=== PATIENT | female | born 1970 | race Caucasian/White ===

== ENCOUNTER → 2018-10-22 | Outpatient (CLI) | payer MEDICARE, MEDICAID ==
[2018-10-22 11:59] LABS: ABSOLUTE BASOPHILS # (AUTO) 0.1 10^3/uL (0.0-0.2); ABSOLUTE EOSINOPHILS # (AUTO) 0.1 10^3/uL (0.0-0.6); ABSOLUTE LYMPHOCYTES (AUTO) 1.7 10^3/uL (0.5-4.7); ABSOLUTE MONOCYTES (AUTO) 0.7 10^3/uL (0.1-1.4); ABSOLUTE NEUT (AUTO) 2.4 10^3/uL (1.7-8.2); BASOPHILS % (AUTO) 1.2 % (0-2); EOSINOPHILS % (AUTO) 2.7 % (0-6); HEMATOCRIT 40.5 % (36.0-47.0); HEMOGLOBIN 13.8 g/dL (12.0-15.5); LYMPHOCYTES % (AUTO) 33.5 % (13-45); MEAN CORPUSCULAR HEMOGLOBIN 33.4 pg (27.0-33.4); MEAN CORPUSCULAR HGB CONC 34.1 g/dL (32.0-36.0); MEAN CORPUSCULAR VOLUME 98 fl (80-97); MONOCYTES % (AUTO) 13.3 % (3-13); RED BLOOD COUNT 4.14 10^6/uL (3.72-5.28); RED CELL DISTRIBUTION WIDTH 12.5 % (11.5-14.0); SEGMENTED NEUTROPHILS % (AUTO) 49.3 % (42-78); TOTAL CELLS COUNTED % (AUTO) 100 %; WHITE BLOOD COUNT 4.9 10^3/uL (4.0-10.5)
[2018-10-22 12:20] LABS: ALANINE AMINOTRANSFERASE 36 U/L (9-52); ALKALINE PHOSPHATASE 82 U/L (38-126); ANION GAP 14 (5-19); ASPARTATE AMINO TRANSFERASE 39 U/L (14-36); BILIRUBIN,DIRECT 0.4 mg/dL (0.0-0.4); BILIRUBIN,TOTAL 1.1 mg/dL (0.2-1.3); BLOOD UREA NITROGEN 21 mg/dL (7-20); CARBON DIOXIDE 24 mmol/L (22-30); CHLORIDE 102 mmol/L (98-107); CHOLESTEROL 193.31 mg/dL (0-200); GLUCOSE 97 mg/dL (75-110); POTASSIUM 4.2 mmol/L (3.6-5.0); SODIUM 140.4 mmol/L (137-145); TOTAL PROTEIN 8.7 g/dL (6.3-8.2); TRIGLYCERIDES 76 mg/dL (<150)
[2018-10-22 12:21] LABS: PLATELET COUNT 191 10^3/uL (150-450)
[2018-10-22 12:31] LABS: DIRECT LDL 123 mg/dL (<100)
[2018-10-22 12:47] LABS: TOTAL T3 1.5 ng/mL (0.970-1.69)
== END ==
LOC: LAB 10:42
PROVIDERS: ATTEND Nurse Practitioner Family
DX: I10 Essential (primary) hypertension (principal); E55.9 Vitamin D deficiency, unspecified; Z13.1 Encounter for screening for diabetes mellitus; Z13.220 Encounter for screening for lipoid disorders; Z13.29 Encounter for screening for other suspected endocrine disorder; R60.9 Edema, unspecified
CPT/HCPCS: 36415; 80053; 80061; 82306; 84436; 84443; 84480; 85025

== ENCOUNTER 2018-12-02 10:00 | Emergency (ER) | payer MEDICARE, MEDICAID ==
[2018-12-02] MEDS ORDERED: IBUPROFEN 800 MG TABLET PO ONE (11:24)
--- NOTE | 2018-12-02 11:31 | ER Document Report ---
HPI - HPI Time Seen by Provider: 12/02/18 11:11 Pain Level: 3 Context: Patient is a 47-year-old female with a history of seizures and hypertension who presents to the emergency department with a chief complaint of right elbow pain. Patient reports that this pain started on Thursday. Patient denies injury or fall. Patient is wheelchair-bound as she had a seizure as a child which caused right sided weakness. Patient is sitting in the wheelchair frequently and has her right arm propped up frequently on the wheelchair arm. The mother states that she had a towel wrapped around the elbow to help elevate the arm and she is not sure if this caused continuous friction and for a blister to develop. Mother states that the blister developed yesterday and popped. She reports that after the blister popped the patient developed redness around the area. Patient is able to move her right elbow although this does increase the pain. Patient did go her to her primary care physician this morning but was sent to the emergency department for evaluation. - REPRODUCTIVE Reproductive: DENIES: : Past Medical History - General Information source: Patient - Social History Smoking Status: Never Smoker Frequency of alcohol use: None Drug Abuse: None Lives with: Family Family History: None - Past Medical History Cardiac Medical History: Reports: Hx Hypertension Pulmonary Medical History: Reports: None EENT Medical History: Reports: None Neurological Medical History: Reports: Hx Seizures Endocrine Medical History: Reports: None Renal/ Medical History: Reports: None Malignancy Medical History: Reports: None GI Medical History: Reports: None Musculoskeletal Medical History: Reports None Skin Medical History: Reports None Psychiatric Medical History: Reports: None Traumatic Medical History: Reports: None Infectious Medical History: Reports: None Past Surgical History: Reports: None Vertical Provider Document - CONSTITUTIONAL Agree With Documented VS: Yes Exam Limitations: No Limitations General Appearance: No Apparent Distress - INFECTION CONTROL TRAVEL OUTSIDE OF THE [place] IN LAST 30 DAYS: No - HEENT HEENT: Atraumatic, Normocephalic, PERRLA - NECK Neck: Normal Inspection - RESPIRATORY Respiratory: Breath Sounds Normal, No Respiratory Distress - CARDIOVASCULAR Cardiovascular: Regular Rate, Regular Rhythm - GI/ABDOMEN Gastrointestinal: Abdomen Soft, Abdomen Non-Tender - MUSCULOSKELETAL/EXTREMETIES Notes: There is a 2 x 1 cm open wound to the lateral aspect of the olecranon bone of the right arm. There is a surrounding cellulitis. Patient does have a history of right arm weakness and active range of motion is limited per her norm. During passive range of motion patient is able to bend her arm at the elbow joint and has full range of motion. Patient is able to flex and extend. Patient has a strong right brachial pulse. There is no tenderness over the olecranon bone. There is minimal drainage from the superficial open wound. The cellulitis does not extend to the forearm or upper arm. Course - Re-evaluation Re-evalutation: 12/02/18 11:31 We will medicate the patient for pain and obtain an x-ray of the elbow, basic labs. If the studies are normal patient will be placed on antibiotic coverage and the patient and family were given strict return precautions to include inability to move the right arm at the elbow joint, worsening of redness and swelling, fever or any other worsening or concerning signs or symptoms. Family and patient is in agreement of this plan. Patient is not febrile, tachycardic or hypotensive at this time. 12/02/18 13:22 Blood work and x-ray were negative. I did inform the patient and mother while she is sitting in the wheelchair to prop the right upper extremity up so it can be elevated. I did inform them to try to avoid rubbing the elbow against the side of the wheelchair as this is her position of comfort. Patient will be placed on doxycycline. I did give strict instructions and return precautions to the patient and family. I did inform them while taking doxy to stay out of the sun as it can cause a sunburn. - Vital Signs Vital signs: Temp Pulse Resp BP Pulse Ox 98.9 F 88 18 119/60 100 12/02/18 10:05 12/02/18 10:05 12/02/18 10:05 12/02/18 10:05 12/02/18 10:05 - Laboratory Result Diagrams: 12/02/18 11:36 12/02/18 11:36 Laboratory results interpreted by me: 12/02/18 12:41 Laboratory 12/02/18 12/02/18 11:36 11:36 WBC 6.3 RBC 3.68 L Hgb 12.1 Hct 35.7 L MCV 97 MCH 32.8 MCHC 33.8 RDW 12.3 Plt Count 256 Seg Neutrophils % 65.8 Lymphocytes % 17.7 Monocytes % 14.8 H Eosinophils % 1.2 Basophils % 0.5 Absolute Neutrophils 4.2 Absolute Lymphocytes 1.1 Absolute Monocytes 0.9 Absolute Eosinophils 0.1 Absolute Basophils 0.0 Sodium 137.0 Potassium 3.4 L Chloride 99 Carbon Dioxide 27 Anion Gap 11 BUN 13 Creatinine 0.50 L Est GFR ( Amer) > 60 Est GFR (Non-Af Amer) > 60 Glucose 104 Calcium 9.2 - Diagnostic Test Radiology reviewed: Reports reviewed Radiology results interpreted by me: 12/02/18 12:41 Elbow X-Ray 12/02/18 11:23 IMPRESSION: NEGATIVE STUDY OF THE RIGHT ELBOW. NO RADIOGRAPHIC EVIDENCE OF ACUTE INJURY. Discharge - Discharge Clinical Impression: Right elbow pain Cellulitis Qualifiers: Site of cellulitis: extremity Site of cellulitis of extremity: upper extremity Laterality: right Qualified Code(s): L03.113 - Cellulitis of right upper limb Condition: Stable Disposition: HOME, SELF-CARE Additional Instructions: Today he was seen in the emergency department for right elbow pain and infection. The x-ray did not show an infection in the bone. Your lab results were unremarkable. Your potassium level was slightly low but not life- threatening, you can increase this by eating bananas or green leafy vegetables. It does appear that you have a surrounding cellulitis which is an infection. I am placing you on doxycycline. This is an antibiotic that you need to take for its full course. You will be placed on this twice a day for the next 7 days. It is vital to return for worsening symptoms to include inability to move the right elbow joint, fever, worsening redness that streaks up or down the arm or any other concerning signs or symptoms. Please follow-up with your primary care physician next week for a reevaluation. Doxycycline Doxycycline (Vibramycin, Doryx) is an antibiotic of the tetracycline family. This type of drug is useful for infections of the respiratory tract and genital tract, and is sometimes used for intestinal infections. Unlike most tetracyclines, doxycycline can be taken with food. It is longer acting, and (usually) less prone to side effects than regular tetracycline. Tetracycline antibiotics can stain immature teeth and SHOULD NOT BE TAKEN BY CHILDREN, NURSING MOTHERS, OR WOMEN. Tetracyclines can make you more prone to sunburn. Abdominal cramping, nausea, and diarrhea are occasional side effects. Women may experience vaginal yeast infections. Call the doctor at once if you develop hives, itching, shortness of breath, or lightheadedness. Cellulitis You have an infection of your skin and underlying soft tissues called cellulitis. This is due to bacteria, which can enter through any break in the skin, or even through an irritated hair follicle. Untreated, cellulitis will usually worsen. Antibiotics are required. Usually, warm packs or warm soaks, and elevation of the infected area are recommended. You should start getting better within 24 to 36 hours. Most infections respond quickly to the right medication. Follow-up care is important, however, to check for abscess (boil) formation, unsuspected foreign body, or resistant infection. If you develop fever, chills, or if the area of infection is becoming rapidly more swollen or painful, call the doctor at once. Prescriptions: Doxycycline Hyclate 100 mg PO BID #14 capsule Referrals: SEAN CRUZ MD [Primary Care Provider] - Follow up as needed
[2018-12-02 11:55] LABS: ABSOLUTE EOSINOPHILS # (AUTO) 0.1 10^3/uL (0.0-0.6); ABSOLUTE LYMPHOCYTES (AUTO) 1.1 10^3/uL (0.5-4.7); ABSOLUTE MONOCYTES (AUTO) 0.9 10^3/uL (0.1-1.4); ABSOLUTE NEUT (AUTO) 4.2 10^3/uL (1.7-8.2); BASOPHILS % (AUTO) 0.5 % (0-2); EOSINOPHILS % (AUTO) 1.2 % (0-6); HEMATOCRIT 35.7 % (36.0-47.0); HEMOGLOBIN 12.1 g/dL (12.0-15.5); LYMPHOCYTES % (AUTO) 17.7 % (13-45); MEAN CORPUSCULAR HEMOGLOBIN 32.8 pg (27.0-33.4); MEAN CORPUSCULAR HGB CONC 33.8 g/dL (32.0-36.0); MEAN CORPUSCULAR VOLUME 97 fl (80-97); MONOCYTES % (AUTO) 14.8 % (3-13); PLATELET COUNT 256 10^3/uL (150-450); RED BLOOD COUNT 3.68 10^6/uL (3.72-5.28); RED CELL DISTRIBUTION WIDTH 12.3 % (11.5-14.0); SEGMENTED NEUTROPHILS % (AUTO) 65.8 % (42-78); TOTAL CELLS COUNTED % (AUTO) 100 %; WHITE BLOOD COUNT 6.3 10^3/uL (4.0-10.5)
[2018-12-02 12:11] LABS: ANION GAP 11 (5-19); BLOOD UREA NITROGEN 13 mg/dL (7-20); CALCIUM 9.2 mg/dL (8.4-10.2); CARBON DIOXIDE 27 mmol/L (22-30); CHLORIDE 99 mmol/L (98-107); GLUCOSE 104 mg/dL (75-110); POTASSIUM 3.4 mmol/L (3.6-5.0)
--- NOTE | 2018-12-02 12:37 | RADIOLOGY REPORT (SQ) ---
EXAM DESCRIPTION: ELBOW RIGHT AP/LAT COMPLETED DATE/TIME: 12/02/2018 12:07 pm REASON FOR STUDY: right elbow edema and redness COMPARISON: None. NUMBER OF VIEWS: Two views. TECHNIQUE: AP and lateral radiographic images acquired of the right elbow. LIMITATIONS: The lateral view is marked left. The anterior view is marked right. The assumption is that both of these images are of the right elbow. FINDINGS: MINERALIZATION: Normal. BONES: No acute fracture or dislocation. No worrisome bone lesions. JOINT: No effusion. SOFT TISSUES: No soft tissue swelling. No foreign body. OTHER: No other significant finding. IMPRESSION: NEGATIVE STUDY OF THE RIGHT ELBOW. NO RADIOGRAPHIC EVIDENCE OF ACUTE INJURY. TECHNICAL DOCUMENTATION: JOB ID: [id number] [employer]- All Rights Reserved Reading location - IP/workstation name: [email or web address]
[2018-12-02] MEDS ORDERED: DOXYCYCLINE HYCLATE 100 MG TABLET PO ONE (12:53)
[2018-12-02 13:17] VITALS: BP 115/62
== END 2018-12-02 13:18 | disposition home or self-care (01) ==
LOC: ER 10:00
DX: L03.113 Cellulitis of right upper limb (principal); S51.001A Unspecified open wound of right elbow, initial encounter; X58.XXXA Exposure to other specified factors, initial encounter; Y93.89 Activity, other specified; M25.521 Pain in right elbow; I10 Essential (primary) hypertension; Z99.3 Dependence on wheelchair; R53.1 Weakness
CPT/HCPCS: 99283; 36415; 85025; 80048; 73070; A9270 ×2

== ENCOUNTER 2020-01-16 15:31 | Emergency (ER) | payer MEDICARE, MEDICAID ==
--- NOTE | 2020-01-16 16:51 | ER Document Report ---
ED Medical Screen (RME) - General Chief Complaint: Leg Swelling Stated Complaint: LEFT LEG PAIN, SWELLING Time Seen by Provider: 01/16/20 16:38 TRAVEL OUTSIDE OF THE [place] IN LAST 30 DAYS: No - HPI Notes: 01/16/20 16:50 49-year-old female past medical history of hypertension, leg edema, intellectual delay to the emergency department with her mother with complaints of progressively worsening and persistent left lower leg swelling and pain. Patient states it only hurts when she stands on it. Mom states that they saw the doctor on Thursday and they were getting Keflex but when it had not gotten better her primary care sent her here for further evaluation. They deny any past medical history of DVT. Patient denies any chest pain or shortness of breath. They admit to chills but no fevers. I performed a brief medical screening exam on the patient determined that the patient needs further evaluation and management by main side provider. I have placed initial orders to help expedite care. - Related Data Allergies/Adverse Reactions: codeine Allergy (Verified 01/16/20 16:50) Home Medications: lasix. spironolactone. lisinopril. keflex. alendronate Past Medical History - Social History Chew tobacco use (# tins/day): No Frequency of alcohol use: None Drug Abuse: None - Past Medical History Cardiac Medical History: Reports: Hx Hypertension Neurological Medical History: Reports: Hx Seizures Renal/ Medical History: Denies: Hx Peritoneal Dialysis Physical Exam - Vital signs Vitals: Temp Pulse Resp BP Pulse Ox 97.3 F 88 16 150/70 H 95 01/16/20 16:02 01/16/20 16:02 01/16/20 16:02 01/16/20 16:02 01/16/20 16:02 Course - Vital Signs Vital signs: Temp Pulse Resp BP Pulse Ox 97.3 F 88 16 150/70 H 95 01/16/20 16:02 01/16/20 16:02 01/16/20 16:02 01/16/20 16:02 01/16/20 16:02
[2020-01-16 18:02] LABS: ABSOLUTE EOSINOPHILS # (AUTO) 0.1 10^3/uL (0.0-0.6); ABSOLUTE LYMPHOCYTES (AUTO) 0.9 10^3/uL (0.5-4.7); ABSOLUTE MONOCYTES (AUTO) 0.9 10^3/uL (0.1-1.4); ABSOLUTE NEUT (AUTO) 2.6 10^3/uL (1.7-8.2); BASOPHILS % (AUTO) 0.5 % (0-2); EOSINOPHILS % (AUTO) 2.7 % (0-6); HEMATOCRIT 37.2 % (36.0-47.0); HEMOGLOBIN 12.6 g/dL (12.0-15.5); LYMPHOCYTES % (AUTO) 19.3 % (13-45); MEAN CORPUSCULAR HEMOGLOBIN 33.4 pg (27.0-33.4); MEAN CORPUSCULAR HGB CONC 33.9 g/dL (32.0-36.0); MEAN CORPUSCULAR VOLUME 99 fl (80-97); MONOCYTES % (AUTO) 19.6 % (3-13); PLATELET COUNT 238 10^3/uL (150-450); RED BLOOD COUNT 3.77 10^6/uL (3.72-5.28); SEGMENTED NEUTROPHILS % (AUTO) 57.9 % (42-78); TOTAL CELLS COUNTED % (AUTO) 100 %; WHITE BLOOD COUNT 4.4 10^3/uL (4.0-10.5)
[2020-01-16 18:17] LABS: ALBUMIN 3.8 g/dL (3.5-5.0); ALKALINE PHOSPHATASE 107 U/L (38-126); ANION GAP 10 (5-19); ASPARTATE AMINO TRANSFERASE 43 U/L (14-36); BILIRUBIN,DIRECT 0.6 mg/dL (0.0-0.4); BILIRUBIN,TOTAL 1.3 mg/dL (0.2-1.3); BLOOD UREA NITROGEN 15 mg/dL (7-20); CALCIUM 9.1 mg/dL (8.4-10.2); CARBON DIOXIDE 27 mmol/L (22-30); CHLORIDE 102 mmol/L (98-107); GLUCOSE 111 mg/dL (75-110); POTASSIUM 3.8 mmol/L (3.6-5.0); TOTAL PROTEIN 7.2 g/dL (6.3-8.2)
--- NOTE | 2020-01-16 19:13 | RADIOLOGY REPORT (SQ) ---
EXAM DESCRIPTION: VENOUS UNILATERAL LOWER IMAGES COMPLETED DATE/TIME: 01/16/2020 5:55 pm REASON FOR STUDY: LEFT lower leg swelling and pain COMPARISON: None. TECHNIQUE: Dynamic and static lira scale and color images acquired of the left leg venous system. Se lected spectral images acquired with additional compression and augmentation maneuvers. The contralat eral common femoral vein and saphenofemoral junction were also imaged. Images stored on PACS. LIMITATIONS: None. FINDINGS: COMMON FEMORAL: Normal phasicity, compression and augmentation. No visualized echogenic ma terial on lira scale. No defects on color images. FEMORAL: Normal compression and augmentation. No visualized echogenic material on lira scale. No defe cts on color images. POPLITEAL: Normal compression, augmentation. No visualized echogenic material on lira scale. No defec ts on color images. CALF VESSELS: Peroneal vein is not visualized due to swelling. Normal compression, augmentation. No visualized echogenic material on lira scale. No defects on color images. GSV and SSV: Normal compression, augmentation. No visualized echogenic material on lira scale. No def ects on color images. ANY DEEP VENOUS INSUFFICIENCY: Not evaluated. ANY EVIDENCE OF POPLITEAL CYST: No. OTHER: None. CONTRALATERAL COMMON FEMORAL VEIN AND SAPHENOFEMORAL JUNCTION: Normal phasicity, compression and augmentation. No visualized echogenic material on lira scale. No de fects on color images. IMPRESSION: NO EVIDENCE OF DVT OR SVT IN THE LEFT LEG. TECHNICAL DOCUMENTATION: JOB ID: [id number] [employer]- All Rights Reserved Reading location - IP/workstation name: [email or web address]
--- NOTE | 2020-01-16 23:07 | ER Document Report ---
ED Extremity Problem, Lower - General Chief Complaint: Leg Swelling Stated Complaint: LEFT LEG PAIN, SWELLING Time Seen by Provider: 01/16/20 16:38 Primary Care Provider: MICHAEL CHAVEZ FNP [Primary Care Provider] - Follow up as needed TRAVEL OUTSIDE OF THE [place] IN LAST 30 DAYS: No - HPI Patient complains to provider of: Pain, Swelling Location: Leg Occurred: Other - 3 days Onset/Duration: Gradual Associated symptoms: Chills Exacerbated by: Walking Relieved by: Nothing Notes: Patient is a 49-year-old female with a past medical history of intellectual delay, hypertension, seizure who presents with swelling to her left leg. Patient is here with her father who provides most of the history. He states that her left leg began swelling and was red on Thursday. They went to an ER in [place] who gave her a "shot of something" and a course of Keflex. She has been taking the Keflex. They went back to the PCP today who stated that the swelling and redness is worse and wanted her to be evaluated in the ED. Patient states she has chills. She did have a fever on Thursday which has resolved according to the father. They deny any other complaints. Pain is worse with walking. Normally she is in her wheelchair. - Related Data Allergies/Adverse Reactions: codeine Allergy (Verified 01/16/20 16:50) Home Medications: lasix. spironolactone. lisinopril. keflex. alendronate Past Medical History - General Information source: Patient, Parent - Social History Smoking Status: Never Smoker Chew tobacco use (# tins/day): No Frequency of alcohol use: None Drug Abuse: None Family History: None Patient has homicidal ideation: No - Past Medical History Cardiac Medical History: Reports: Hx Hypertension Neurological Medical History: Reports: Hx Seizures Renal/ Medical History: Denies: Hx Peritoneal Dialysis Review of Systems - Review of Systems Notes: CONSTITUTIONAL: No fever, fatigue or weight loss. SKIN: No rash. HENT: No congestion, ear pain, or sore throat. EYES: No recent vision problems or eye pain. ENDOCRINE: No polyuria or polydipsia. CARDIOVASCULAR: No chest pain or edema. RESPIRATORY: No cough, shortness of breath, congestion, or wheezing. GASTROINTESTINAL: No abdominal pain, nausea, vomiting, bloody stools or diarrhea. MUSCULOSKELETAL: Swelling and redness to left lower leg LYMPHATIC: No swollen glands. NEUROLOGIC: No seizures. No headache, focal weakness or sensory changes. HEMATOLOGIC: No unusual bruising or bleeding. PSYCHIATRIC: No depression or anxiety. Physical Exam - Vital signs Vitals: Temp Pulse Resp BP Pulse Ox 97.3 F 88 16 150/70 H 95 01/16/20 16:02 01/16/20 16:02 01/16/20 16:02 01/16/20 16:02 01/16/20 16:02 Interpretation: Normal - Notes Notes: VITAL SIGNS: Within normal limits. GENERAL: No acute distress, non-toxic appearance. HEAD: Normal with no signs of head trauma. EYES: EOMI, conjunctiva normal, no discharge. EARS: Hearing grossly intact. NOSE: Normal. NECK: Normal range of motion, no tenderness, supple, no lymphadenopathy, No adenopathy, no JVD. CHEST: Clear breath sounds bilaterally. No wheezes, rales, or rhonchi. CARDIAC: Regular rate and rhythm. S1 and S2, without murmurs, gallops, or rubs. ABDOMEN: Normal and soft with no tenderness, no masses or pulsatile masses. GENITOURINARY: Normal, No tenderness MUSCULOSKELETAL: Erythema and edema to the left lower leg from the foot to the kneee. Area feels warm. No obvious abscess. NEUROLOGICAL: Alert and oriented x 3. No focal sensory or strength deficits. Speech normal. Follows commands appropriately. PSYCHIATRIC: Normal Affect, judgement and mood. Course - Re-evaluation Re-evalutation: 01/17/20 05:39 Patient's father states she has had this before. Patient's lab work is unremarkable. She is afebrile. She has no lactic acidosis. The area of the left leg does appear warm and cellulitic. Her Doppler ultrasound was negative for DVT. Patient has already been taking Keflex. I did discuss with the hospitalist, Dr. Burgos, for possible admission since she has already taken a couple of days of antibiotics. He recommended that I cover for MRSA with another antibiotic for an outpatient trial as she is only taken a couple days of Keflex. Since vitals are normal and lab work is unremarkable, I do believe this is reasonable. Patient was given a dose of Bactrim in the ER. She was instructed to take Keflex and Bactrim. I discussed all this with the patient and her father who verbalized understanding. We outlined the area of the cellulitis. They were instructed to return if the cellulitis is worsening or for any fevers, chills, nausea, vomiting. They were also instructed to follow-up with her PCP this week. - Vital Signs Vital signs: Temp Pulse Resp BP Pulse Ox 98.0 F 91 20 158/59 H 99 01/17/20 01:31 01/17/20 01:31 01/17/20 01:31 01/17/20 01:01/16/20 21:22 - Laboratory Result Diagrams: 01/16/20 17:23 01/16/20 17:23 Laboratory results interpreted by me: 01/16/20 01/16/20 17:23 17:23 MCV 99 H [place] % (Auto) 19.6 H Glucose 111 H Direct Bilirubin 0.6 H AST 43 H Discharge - Discharge Clinical Impression: Cellulitis of left leg Condition: Stable Disposition: HOME, SELF-CARE Instructions: Cellulitis ([facility]) Additional Instructions: Please return to the ER if you develop fevers, chills, nausea, vomiting, or worsening of the redness of your left leg. Continue taking your Keflex in addition to the antibiotics prescribed today. Please follow-up with your family doctor this week for recheck. Prescriptions: Sulfamethoxazole/Trimethoprim [Bactrim Ds Tablet] 2 tab PO BID 7 Days #28 tablet Referrals: MICHAEL CHAVEZ FNP [Primary Care Provider] - Follow up as needed
[2020-01-17] MEDS ORDERED: SULFAMETHOXAZOLE/TRIMETHOPRIM 800-160 MG TABLET PO ONE (00:14)
[2020-01-17 01:33] VITALS: BP 158/59
== END 2020-01-17 01:30 | disposition home or self-care (01) ==
LOC: ER 15:31
DX: L03.116 Cellulitis of left lower limb (principal); R68.83 Chills (without fever); I10 Essential (primary) hypertension; Z79.899 Other long term (current) drug therapy; Z88.6 Allergy status to analgesic agent; Z88.5 Allergy status to narcotic agent
CPT/HCPCS: 99284; 36415; 87040; 83605; 85025; 80053; 87150 ×26; 93971; A9270; 87077